=== PATIENT | female | born 1935 | race Caucasian/White ===

== ENCOUNTER 2017-12-18 10:49 | Inpatient (IN) ==
[2017-12-18 11:50] LABS: Basophils # 0.1 10*3/uL (0.0-0.2); Basophils % 1.3 % (0.0-0.8); Eosinophils % 0.2 % (0.00-10.9); Hematocrit 34.6 VOL% (35.7-47.0); Hemoglobin 11.7 GM/DL (12.0-16.0); Immature Granulocytes % 0.2 %; Immature Granulocytes Absolute 0.01 #; Lymphocytes # 1.7 10*3/uL (1.4-4.0); Lymphocytes % 30.6 % (21.3-54.2); Mean Corpuscular HGB Conc 33.8 GM/DL (32-36); Mean Corpuscular Hemoglobin 28 PG (27-34); Mean Corpuscular Volume 81.8 FL (87-102); Mean Platelet Volume 10.3 FL (9.6-12.0); Monocytes # 0.6 10*3/uL (0.11-0.8); Monocytes % 10.6 % (1.7-12.7); Neutrophils # 3.1 10*3/uL (1.4-7.4); Neutrophils % 57.1 % (38.7-73.9); Platelet Count 240 T/CUMM (130-400); Red Blood Count 4.23 MC/CUMM (3.8-5.5); Red Cell Distribution Width 13.3 % (9.3-17.3); White Blood Count 5.5 T/CUMM (4-12)
[2017-12-18 12:00] LABS: PT Patient Result 10.5 SECS; Partial Thromboplastin Time 29.2 SECS (0-40)
[2017-12-18] MEDS ORDERED: ONDANSETRON 4 MG/2 ML VIAL ONE (12:16)
[2017-12-18] MEDS ORDERED: hydrALAZINE 20 MG/1 ML VIAL ONE (12:16)
[2017-12-18 12:21] LABS: Alanine Aminotransferase 22 U/L (13-56); Albumin 3.9 G/DL (3.4-5.0); Alkaline Phosphatase 84 U/L (45-117); Aspartate Amino Transferase 21 U/L (0-37); Blood Urea Nitrogen 13 MG/DL (7-18); Glucose 94 MG/DL (74-106); Osmolality,Calculated 257.9 MOS/KG (273-304); Sodium 129 MMOL/L (136-145); Total Protein 7.4 G/DL (6.4-8.3)
[2017-12-18] MEDS ORDERED: hydrALAZINE 20 MG/1 ML VIAL IV STA ×2 (12:28→12:47)
[2017-12-18] MEDS ORDERED: ONDANSETRON 4 MG/2 ML VIAL IV STA (12:28)
[2017-12-18] MEDS ORDERED: FUROSEMIDE 40 MG/4 ML VIAL IV STA (12:54)
[2017-12-18] MEDS ORDERED: ONDANSETRON 4 MG/2 ML VIAL IV PRN (12:59)
[2017-12-18] MEDS ORDERED: ACETAMINOPHEN 325 MG TABLET PO PRN (12:59)
[2017-12-18] MEDS: SODIUM CHLORIDE 0.9% 1,000 ML IV SCH (13:42)
[2017-12-18 17:57] LABS: Risk Ratio 2.6; VLDL CHOLESTEROL 26.2 MG/DL
[2017-12-18] MEDS: PREGABALIN 100 MG CAPSULE PO SCH (20:45)
[2017-12-18] MEDS: DOCUSATE SODIUM 100 MG CAPSULE PO SCH (20:45)
[2017-12-18] MEDS: OXcarbazepine 300 MG TABLET PO SCH (20:45)
[2017-12-18] MEDS: PRAVASTATIN 20 MG TABLET PO SCH (20:45)
[2017-12-18] MEDS: LISINOPRIL 2.5 MG TABLET PO SCH (20:45)
[2017-12-19 05:44] LABS: Basophils # 0.1 10*3/uL (0.0-0.2); Eosinophils # 0.1 10*3/uL (0.0-0.87); Eosinophils % 1.5 % (0.00-10.9); Hematocrit 33.8 VOL% (35.7-47.0); Hemoglobin 11.3 GM/DL (12.0-16.0); Immature Granulocytes % 0.2 %; Immature Granulocytes Absolute 0.01 #; Lymphocytes # 3.2 10*3/uL (1.4-4.0); Lymphocytes % 53.6 % (21.3-54.2); Mean Corpuscular HGB Conc 33.4 GM/DL (32-36); Mean Corpuscular Hemoglobin 27 PG (27-34); Mean Corpuscular Volume 81.3 FL (87-102); Mean Platelet Volume 10.5 FL (9.6-12.0); Monocytes # 0.7 10*3/uL (0.11-0.8); Monocytes % 10.9 % (1.7-12.7); Neutrophils % 32.8 % (38.7-73.9); Platelet Count 240 T/CUMM (130-400); Red Blood Count 4.16 MC/CUMM (3.8-5.5); Red Cell Distribution Width 13.5 % (9.3-17.3)
[2017-12-19] MEDS: LEVOTHYROXINE 75 MCG TABLET PO SCH (05:44)
[2017-12-19 06:12] LABS: Calcium 8.4 MG/DL (8.5-10.1); Osmolality,Calculated 267.2 MOS/KG (273-304); Potassium 3.5 MMOL/L (3.5-5.1)
[2017-12-19] MEDS: SODIUM CHLORIDE 0.9% 1,000 ML IV SCH ×2 (06:19→18:15)
[2017-12-19 06:41] LABS: Band Neutrophils 1 % (0-10); Lymphocytes 54 % (20-55); Platelet Estimate Normal; Segmented Neutrophils 38 % (50-85); Total Cells Counted 100
[2017-12-19] MEDS ORDERED: LORazepam 2 MG/1 ML VIAL IV ONE (09:38)
[2017-12-19] MEDS ORDERED: LORazepam 2 MG/1 ML VIAL ONE (09:42)
[2017-12-19] MEDS: OXcarbazepine 300 MG TABLET PO SCH ×2 (11:10→21:27)
[2017-12-19] MEDS: LISINOPRIL 2.5 MG TABLET PO SCH ×2 (11:10→21:26)
[2017-12-19] MEDS: DOCUSATE SODIUM 100 MG CAPSULE PO SCH ×2 (11:10→21:26)
[2017-12-19] MEDS: PREGABALIN 100 MG CAPSULE PO SCH ×2 (11:11→21:27)
[2017-12-19] MEDS: PANTOPRAZOLE 40 MG TABLET PO SCH (11:11)
[2017-12-19] MEDS: PRAVASTATIN 20 MG TABLET PO SCH (21:27)
[2017-12-20] MEDS: SODIUM CHLORIDE 0.9% 1,000 ML IV SCH ×2 (08:52→16:05)
[2017-12-20] MEDS: DOCUSATE SODIUM 100 MG CAPSULE PO SCH (08:54)
[2017-12-20] MEDS: LEVOTHYROXINE 75 MCG TABLET PO SCH (08:54)
[2017-12-20] MEDS: OXcarbazepine 300 MG TABLET PO SCH (08:55)
[2017-12-20] MEDS: PANTOPRAZOLE 40 MG TABLET PO SCH (08:55)
[2017-12-20] MEDS: LISINOPRIL 2.5 MG TABLET PO SCH (08:55)
[2017-12-20] MEDS: PREGABALIN 100 MG CAPSULE PO SCH (08:55)
[2017-12-20 16:31] VITALS: BP 185/78
== END 2017-12-20 18:15 | DRG 65 ==
LOC: N.ED 10:49 → N.EDINP 12:59 → N.4E 16:11
PROVIDERS: ADMIT Internal Medicine; ATTEND Internal Medicine Pulmonary Disease

== ENCOUNTER 2018-10-27 12:12 | Inpatient (IN) ==
[2018-10-27 13:56] LABS: Basophils # 0.1 10*3/uL (0.0-0.2); Basophils % 0.7 % (0.0-0.8); Eosinophils % 0.3 % (0.00-10.9); Hematocrit 38.4 VOL% (35.7-47.0); Hemoglobin 12.2 GM/DL (12.0-16.0); Immature Granulocytes % 0.8 %; Immature Granulocytes Absolute 0.09 #; Lymphocytes # 1.4 10*3/uL (1.4-4.0); Lymphocytes % 11.8 % (21.3-54.2); Mean Corpuscular HGB Conc 31.8 GM/DL (32-36); Mean Corpuscular Hemoglobin 26 PG (27-34); Mean Corpuscular Volume 83.1 FL (87-102); Monocytes # 0.7 10*3/uL (0.11-0.8); Monocytes % 5.9 % (1.7-12.7); Neutrophils # 9.5 10*3/uL (1.4-7.4); Neutrophils % 80.5 % (38.7-73.9); Platelet Count 213 T/CUMM (130-400); Red Blood Count 4.62 MC/CUMM (3.8-5.5); Red Cell Distribution Width 14.2 % (9.3-17.3); White Blood Count 11.7 T/CUMM (4-12)
[2018-10-27 14:11] LABS: Calcium 8.5 MG/DL (8.5-10.1); Osmolality,Calculated 258.1 MOS/KG (273-304); Potassium 4.6 MMOL/L (3.5-5.1)
[2018-10-27] MEDS ORDERED: KETOROLAC 30 MG/1 ML VIAL IV ONE ×2 (14:20→21:11)
[2018-10-27] MEDS ORDERED: KETOROLAC 30 MG/1 ML VIAL ONE (14:23)
[2018-10-27] MEDS: DILTIAZEM 50 MG/10 ML VIAL IV STA ×2 (14:30→16:41)
[2018-10-27] MEDS ORDERED: dilTIAZem Drip 125 MG/125 ML PREMIX IV ONE (14:36)
[2018-10-27] MEDS ORDERED: LACTULOSE 20 GM/30 ML UDCUP PO PRN (14:55)
[2018-10-27] MEDS ORDERED: DOCUSATE SODIUM 100 MG CAPSULE PO PRN (14:55)
[2018-10-27] MEDS ORDERED: ACETAMINOPHEN 325 MG TABLET PO PRN (14:55)
[2018-10-27 15:22] LABS: Apearance,Urine CLEAR (Clear); Bacteria,Urine Occasional /HPF (Few); Bilirubin,Urine Negative (Negative); Blood, Urine Small mg/dL (Negative); Glucose,Urine (UA) Negative (Negative); Ketones,Urine 5 mg/dL (Negative); Nitrite,Urine Positive (Negative); Protein,Urine Negative; RBC,Urine <1 /HPF (0-4); Squamous Epithelial Cell,Urine Occasional /HPF (0-10); Urine Color Yellow (Yellow); Urine Specific Gravity 1.016 (1.001-1.035); Urine Urobilinogen < 2.0 EU/DL (0.2-1.0)
[2018-10-27 15:22] LABS: Risk Ratio 1.97; Thyroid Stimulating Hormone 0.669 uIU/ml (0.358-3.74); VLDL CHOLESTEROL 20.8 MG/DL
[2018-10-27] MEDS: dilTIAZem Drip 125 MG/125 ML PREMIX IV SCH ×2 (15:30→16:42)
[2018-10-27] MEDS: cefTRIAXone 1,000 MG in SYRINGE 1 EACH IV SCH (17:48)
[2018-10-27] MEDS: SODIUM CHLORIDE 0.9% 1,000 ML IV SCH (17:48)
[2018-10-27] MEDS: DILTIAZEM 30 MG TABLET PO SCH ×2 (17:48→21:31)
[2018-10-27] MEDS: SIMVASTATIN 10 MG TABLET PO SCH (21:32)
[2018-10-27] MEDS: OXcarbazepine 300 MG TABLET PO SCH (21:32)
[2018-10-28] MEDS: ONDANSETRON 4 MG/2 ML VIAL IV PRN ×2 (02:48→21:56)
[2018-10-28] MEDS: dilTIAZem Drip 125 MG/125 ML PREMIX IV SCH ×2 (02:51→16:54)
[2018-10-28] MEDS: SODIUM CHLORIDE 0.9% 1,000 ML IV SCH ×2 (02:54→16:52)
[2018-10-28 04:51] LABS: Basophils # 0.1 10*3/uL (0.0-0.2); Basophils % 0.7 % (0.0-0.8); Eosinophils # 0.1 10*3/uL (0.0-0.87); Eosinophils % 1.6 % (0.00-10.9); Hematocrit 29.5 VOL% (35.7-47.0); Hemoglobin 9.6 GM/DL (12.0-16.0); Immature Granulocytes % 0.3 %; Immature Granulocytes Absolute 0.02 #; Lymphocytes # 2.5 10*3/uL (1.4-4.0); Lymphocytes % 36.2 % (21.3-54.2); Mean Corpuscular HGB Conc 32.5 GM/DL (32-36); Mean Corpuscular Hemoglobin 27 PG (27-34); Mean Corpuscular Volume 82.4 FL (87-102); Mean Platelet Volume 10.9 FL (9.6-12.0); Monocytes # 0.9 10*3/uL (0.11-0.8); Monocytes % 12.5 % (1.7-12.7); Neutrophils # 3.4 10*3/uL (1.4-7.4); Neutrophils % 48.7 % (38.7-73.9); Platelet Count 182 T/CUMM (130-400); Red Blood Count 3.58 MC/CUMM (3.8-5.5)
[2018-10-28 05:08] LABS: Calcium 7.7 MG/DL (8.5-10.1); Osmolality,Calculated 261.8 MOS/KG (273-304); Potassium 4.1 MMOL/L (3.5-5.1)
[2018-10-28] MEDS ORDERED: PANTOPRAZOLE 40 MG TABLET PO SCH (09:00)
[2018-10-28] MEDS: LEVOTHYROXINE 75 MCG TABLET PO SCH (09:37)
[2018-10-28] MEDS: ASPIRIN EC 81 MG TABLET PO SCH (09:37)
[2018-10-28] MEDS: OXcarbazepine 300 MG TABLET PO SCH ×2 (09:37→20:44)
[2018-10-28] MEDS: DILTIAZEM 30 MG TABLET PO SCH ×2 (09:37→14:06)
[2018-10-28] MEDS ORDERED: ALBUTEROL/IPRATROPIUM 3 ML NEB RESP TX PRN (13:03)
[2018-10-28] MEDS ORDERED: TUBERCULIN SKIN TEST 0.1 ML SYRINGE INTRADERM ONE (13:58)
[2018-10-28] MEDS: DILTIAZEM CD 120 MG CAPSULE PO SCH ×2 (15:40→20:44)
[2018-10-28] MEDS: ALUMINUM/MAGNES/SIMETH MAX STR 30 ML UDCUP PO PRN (15:40)
[2018-10-28] MEDS ORDERED: diphenhydrAMINE CAP 25 MG CAPSULE PO ONE (16:51)
[2018-10-28] MEDS: cefTRIAXone 1,000 MG in SYRINGE 1 EACH IV SCH (17:18)
[2018-10-28] MEDS: ALBUTEROL/IPRATROPIUM 3 ML NEB RESP TX SCH (19:10)
[2018-10-28] MEDS: SIMVASTATIN 10 MG TABLET PO SCH (20:44)
[2018-10-28] MEDS: METOPROLOL TARTRATE 25 MG TABLET PO SCH (20:44)
[2018-10-28] MEDS: MORPHINE 4 MG/1 ML VIAL IV PRN (21:57)
[2018-10-28] MEDS ORDERED: DIGOXIN 0.5 MG/2 ML AMP IV ONE (23:36)
[2018-10-28] MEDS ORDERED: dilTIAZem Drip 125 MG/125 ML PREMIX IV SCH (23:45)
[2018-10-29] MEDS: ALBUTEROL/IPRATROPIUM 3 ML NEB RESP TX SCH ×4 (01:12→19:32)
[2018-10-29] MEDS: MORPHINE 4 MG/1 ML VIAL IV PRN ×2 (04:34→08:43)
[2018-10-29 04:44] LABS: Basophils % 0.4 % (0.0-0.8); Eosinophils % 0.1 % (0.00-10.9); Hematocrit 34.2 VOL% (35.7-47.0); Hemoglobin 11.1 GM/DL (12.0-16.0); Immature Granulocytes % 0.4 %; Immature Granulocytes Absolute 0.04 #; Lymphocytes # 1.3 10*3/uL (1.4-4.0); Mean Corpuscular HGB Conc 32.5 GM/DL (32-36); Mean Corpuscular Hemoglobin 27 PG (27-34); Mean Platelet Volume 10.8 FL (9.6-12.0); Monocytes % 10.1 % (1.7-12.7); Neutrophils # 7.3 10*3/uL (1.4-7.4); Platelet Count 191 T/CUMM (130-400); Red Blood Count 4.17 MC/CUMM (3.8-5.5); Red Cell Distribution Width 13.9 % (9.3-17.3); White Blood Count 9.6 T/CUMM (4-12)
[2018-10-29 05:21] LABS: Calcium 8.2 MG/DL (8.5-10.1); Osmolality,Calculated 255.2 MOS/KG (273-304); Potassium 3.9 MMOL/L (3.5-5.1)
[2018-10-29] MEDS ORDERED: ACETAMINOPHEN 500 MG TABLET PO PRN (07:17)
[2018-10-29] MEDS ORDERED: MECLIZINE 25 MG TABLET PO PRN (07:17)
[2018-10-29] MEDS ORDERED: hydrOXYzine HCL 25 MG TABLET PO PRN (07:17)
[2018-10-29] MEDS: ONDANSETRON 4 MG/2 ML VIAL IV PRN (08:42)
[2018-10-29] MEDS ORDERED: DILTIAZEM CD 240 MG CAPSULE PO SCH (09:30)
[2018-10-29] MEDS: ASPIRIN EC 81 MG TABLET PO SCH (10:23)
[2018-10-29] MEDS: PREGABALIN 100 MG CAPSULE PO SCH ×2 (10:23→21:12)
[2018-10-29] MEDS: METOPROLOL TARTRATE 25 MG TABLET PO SCH ×2 (10:23→16:11)
[2018-10-29] MEDS: PANTOPRAZOLE 40 MG TABLET PO SCH (10:24)
[2018-10-29] MEDS: OXcarbazepine 300 MG TABLET PO SCH ×2 (10:24→21:12)
[2018-10-29] MEDS: LEVOTHYROXINE 75 MCG TABLET PO SCH (10:24)
[2018-10-29] MEDS: DILTIAZEM CD 120 MG CAPSULE PO SCH (10:29)
[2018-10-29] MEDS: ACETAMINOPHEN 500 MG TABLET PO SCH ×2 (10:32→21:11)
[2018-10-29] MEDS: SODIUM CHLORIDE 0.9% 1,000 ML IV SCH (10:40)
[2018-10-29] MEDS: dilTIAZem Drip 125 MG/125 ML PREMIX IV SCH (15:41)
[2018-10-29] MEDS: cefTRIAXone 1,000 MG in SYRINGE 1 EACH IV SCH (17:59)
[2018-10-29] MEDS: ALUMINUM/MAGNES/SIMETH MAX STR 30 ML UDCUP PO PRN (18:00)
[2018-10-29] MEDS ORDERED: diphenhydrAMINE CAP 50 MG CAPSULE PO SCH (21:00)
[2018-10-29] MEDS: SIMVASTATIN 10 MG TABLET PO SCH (21:12)
[2018-10-30] MEDS: ALBUTEROL/IPRATROPIUM 3 ML NEB RESP TX SCH ×4 (00:29→19:10)
[2018-10-30] MEDS: DILTIAZEM 60 MG TABLET PO SCH ×5 (00:55→20:53)
[2018-10-30 04:29] LABS: Basophils # 0.1 10*3/uL (0.0-0.2); Basophils % 0.7 % (0.0-0.8); Eosinophils # 0.1 10*3/uL (0.0-0.87); Eosinophils % 1.5 % (0.00-10.9); Hematocrit 31.3 VOL% (35.7-47.0); Hemoglobin 9.8 GM/DL (12.0-16.0); Immature Granulocytes % 0.3 %; Immature Granulocytes Absolute 0.02 #; Lymphocytes # 2.1 10*3/uL (1.4-4.0); Lymphocytes % 29.6 % (21.3-54.2); Mean Corpuscular HGB Conc 31.3 GM/DL (32-36); Mean Corpuscular Hemoglobin 27 PG (27-34); Mean Corpuscular Volume 85.3 FL (87-102); Mean Platelet Volume 10.7 FL (9.6-12.0); Monocytes % 14.1 % (1.7-12.7); Neutrophils # 3.9 10*3/uL (1.4-7.4); Neutrophils % 53.8 % (38.7-73.9); Platelet Count 168 T/CUMM (130-400); Red Blood Count 3.67 MC/CUMM (3.8-5.5); Red Cell Distribution Width 13.9 % (9.3-17.3); White Blood Count 7.2 T/CUMM (4-12)
[2018-10-30 04:52] LABS: Calcium 8.4 MG/DL (8.5-10.1); Osmolality,Calculated 260.9 MOS/KG (273-304); Potassium 4.5 MMOL/L (3.5-5.1)
[2018-10-30] MEDS: SODIUM CHLORIDE 0.9% 1,000 ML IV SCH (06:58)
[2018-10-30] MEDS: ACETAMINOPHEN 500 MG TABLET PO SCH ×2 (09:24→20:52)
[2018-10-30] MEDS: PREGABALIN 100 MG CAPSULE PO SCH ×2 (09:25→20:53)
[2018-10-30] MEDS: LEVOTHYROXINE 75 MCG TABLET PO SCH (09:25)
[2018-10-30] MEDS: ASPIRIN EC 81 MG TABLET PO SCH (09:25)
[2018-10-30] MEDS: OXcarbazepine 300 MG TABLET PO SCH ×2 (09:25→20:53)
[2018-10-30] MEDS: PANTOPRAZOLE 40 MG TABLET PO SCH (09:25)
[2018-10-30] MEDS: POLYETHYLENE GLYCOL POWDER 17 GM PACK PO SCH ×2 (11:23→11:46)
[2018-10-30] MEDS: CALCIUM (CARBONATE)/VITAMIN D 600 MG-400 UNIT TABLET PO SCH ×2 (11:46→20:54)
[2018-10-30] MEDS: cefTRIAXone 1,000 MG in SYRINGE 1 EACH IV SCH (17:05)
[2018-10-30] MEDS: SIMVASTATIN 10 MG TABLET PO SCH (20:53)
[2018-10-30] MEDS ORDERED: diphenhydrAMINE CAP 50 MG CAPSULE PO SCH (23:30)
[2018-10-31] MEDS: ALBUTEROL/IPRATROPIUM 3 ML NEB RESP TX SCH ×4 (00:27→19:28)
[2018-10-31] MEDS: SODIUM CHLORIDE 0.9% 1,000 ML IV SCH ×3 (02:51→19:52)
[2018-10-31 05:40] LABS: Basophils # 0.1 10*3/uL (0.0-0.2); Basophils % 1.3 % (0.0-0.8); Eosinophils # 0.3 10*3/uL (0.0-0.87); Eosinophils % 3.8 % (0.00-10.9); Hematocrit 29.8 VOL% (35.7-47.0); Hemoglobin 9.5 GM/DL (12.0-16.0); Immature Granulocytes % 0.3 %; Immature Granulocytes Absolute 0.02 #; Lymphocytes # 1.9 10*3/uL (1.4-4.0); Lymphocytes % 26.4 % (21.3-54.2); Mean Corpuscular HGB Conc 31.9 GM/DL (32-36); Mean Corpuscular Hemoglobin 27 PG (27-34); Mean Corpuscular Volume 83.7 FL (87-102); Mean Platelet Volume 11.1 FL (9.6-12.0); Monocytes # 0.9 10*3/uL (0.11-0.8); Monocytes % 12.4 % (1.7-12.7); Neutrophils % 55.8 % (38.7-73.9); Platelet Count 180 T/CUMM (130-400); Red Blood Count 3.56 MC/CUMM (3.8-5.5); Red Cell Distribution Width 14.1 % (9.3-17.3); White Blood Count 7.2 T/CUMM (4-12)
[2018-10-31 05:45] LABS: Calcium 7.7 MG/DL (8.5-10.1); Osmolality,Calculated 264.7 MOS/KG (273-304); Potassium 4.4 MMOL/L (3.5-5.1)
[2018-10-31] MEDS: DILTIAZEM 60 MG TABLET PO SCH (08:47)
[2018-10-31] MEDS: POLYETHYLENE GLYCOL POWDER 17 GM PACK PO SCH ×2 (08:47→08:55)
[2018-10-31] MEDS: OXcarbazepine 300 MG TABLET PO SCH ×2 (08:48→20:56)
[2018-10-31] MEDS: CALCIUM (CARBONATE)/VITAMIN D 600 MG-400 UNIT TABLET PO SCH ×2 (08:48→20:55)
[2018-10-31] MEDS: PANTOPRAZOLE 40 MG TABLET PO SCH (08:49)
[2018-10-31] MEDS: ASPIRIN EC 81 MG TABLET PO SCH (08:49)
[2018-10-31] MEDS: LEVOTHYROXINE 75 MCG TABLET PO SCH (08:49)
[2018-10-31] MEDS: PREGABALIN 100 MG CAPSULE PO SCH ×2 (08:54→20:57)
[2018-10-31] MEDS ORDERED: DILTIAZEM 60 MG TABLET PO ONE (10:36)
[2018-10-31] MEDS: DILTIAZEM CD 120 MG CAPSULE PO SCH ×2 (10:37→20:57)
[2018-10-31] MEDS: cefTRIAXone 1,000 MG in SYRINGE 1 EACH IV SCH (17:59)
[2018-10-31] MEDS: ACETAMINOPHEN 500 MG TABLET PO SCH (20:55)
[2018-10-31] MEDS: SIMVASTATIN 10 MG TABLET PO SCH (20:56)
[2018-10-31] MEDS ORDERED: BISACODYL 5 MG TABLET PO SCH (21:00)
[2018-10-31] MEDS ORDERED: DOCUSATE SODIUM 100 MG CAPSULE PO SCH (21:00)
[2018-11-01] MEDS: ALBUTEROL/IPRATROPIUM 3 ML NEB RESP TX SCH ×3 (00:35→13:29)
[2018-11-01 05:02] LABS: Basophils # 0.1 10*3/uL (0.0-0.2); Basophils % 1.1 % (0.0-0.8); Eosinophils # 0.3 10*3/uL (0.0-0.87); Hematocrit 32.5 VOL% (35.7-47.0); Hemoglobin 10.2 GM/DL (12.0-16.0); Immature Granulocytes % 0.4 %; Immature Granulocytes Absolute 0.03 #; Lymphocytes # 1.7 10*3/uL (1.4-4.0); Lymphocytes % 23.8 % (21.3-54.2); Mean Corpuscular HGB Conc 31.4 GM/DL (32-36); Mean Corpuscular Hemoglobin 27 PG (27-34); Mean Corpuscular Volume 84.9 FL (87-102); Mean Platelet Volume 10.5 FL (9.6-12.0); Monocytes # 0.9 10*3/uL (0.11-0.8); Monocytes % 12.8 % (1.7-12.7); Neutrophils % 57.9 % (38.7-73.9); Platelet Count 224 T/CUMM (130-400); Red Blood Count 3.83 MC/CUMM (3.8-5.5); Red Cell Distribution Width 14.1 % (9.3-17.3)
[2018-11-01 05:07] LABS: Calcium 8.6 MG/DL (8.5-10.1); Osmolality,Calculated 259.1 MOS/KG (273-304); Potassium 4.7 MMOL/L (3.5-5.1)
[2018-11-01] MEDS: POLYETHYLENE GLYCOL POWDER 17 GM PACK PO SCH ×2 (08:26→08:59)
[2018-11-01] MEDS: DILTIAZEM CD 120 MG CAPSULE PO SCH (08:28)
[2018-11-01] MEDS: PANTOPRAZOLE 40 MG TABLET PO SCH (08:28)
[2018-11-01] MEDS: CALCIUM (CARBONATE)/VITAMIN D 600 MG-400 UNIT TABLET PO SCH (08:28)
[2018-11-01] MEDS: PREGABALIN 100 MG CAPSULE PO SCH (08:29)
[2018-11-01] MEDS: ASPIRIN EC 81 MG TABLET PO SCH (08:29)
[2018-11-01] MEDS: LEVOTHYROXINE 75 MCG TABLET PO SCH (08:29)
[2018-11-01] MEDS: OXcarbazepine 300 MG TABLET PO SCH (08:29)
[2018-11-01 12:00] VITALS: BP 123/77
[2018-11-01] MEDS ORDERED: POLYETHYLENE GLYCOL POWDER 17 GM PACK PO SCH (21:00)
[2018-11-01] MEDS ORDERED: DOCUSATE SODIUM 100 MG CAPSULE PO SCH (21:00)
[2018-11-02] MEDS ORDERED: LINACLOTIDE 145 MCG CAPSULE PO SCH (07:30)
== END 2018-11-01 14:15 | DRG 543 ==
LOC: N.ED 12:12 → SUATTDRO 13:47 → N.EDINP 13:47 → N.TELEN 16:00
PROVIDERS: ADMIT Internal Medicine; ATTEND Hospitalist